=== PATIENT | female | born 1985 | race Caucasian/White ===

== ENCOUNTER 2016-06-20 18:00 | Inpatient (IN) | payer OTHER ==
--- NOTE | ~2016-06-20 | DS ---
Unit #: [id number] #: [id number] Patient: DUY HART [id number] [place] [address] [id number] MR#: [id number] NAME: DUY HART ROOM: [facility] Age: 31 Sex: F Admission Date: 06/20/2016 : 1985 Discharge Date: 06/25/2016 Attending Physician: Cy Laws M.D. Primary Care Physician: Primary Care Physician No DISCHARGE SUMMARY REASON FOR ADMISSION Ms. Simeon reported increasing depression, anxiety, hopelessness and some evidence of bulimia due to stress in her work place. She also made superficial cuts on her arm and was unable to contract for safety. She was admitted for stabilization. LABORATORY Please see hospital chart. HOSPITAL COURSE Patient was admitted and placed on suicide precautions, Prozac 20 mg daily for depression and Navane 5 mg at bedtime for mood stability and psychotic features were initiated. She participated in psychotherapy groups and activities with the aid of a Mongolian russian language professor and was on room lockout due to bulimia, which did not appear to be an issue. She ate well and showed no evidence of purging. She spent a significant amount of time on the phone with her family, and appeared to work out some family relationship issues. On the date of discharge she was able to contract for safety. DISCHARGE DIAGNOSIS AXIS I: Major depression with psychotic features. Bulimia Nervosa. AXIS II: No diagnosis. AXIS III: None. INSTRUCTION TO PATIENT Followup with the [facility] in [place], [place] DISCHARGE MEDICATIONS 1. Prozac 20 mg daily for depression. 2. Navane 5 mg at bedtime for psychotic features. CONDITION ON DISCHARGE Improved. PROGNOSIS Good. DIET AND ACTIVITY Per primary care doctor Unit #: [id number] #: [id number] Patient: DUY HART Dictated by... Joao Silva/ty TD: 08/24/2016 04:02 JOB #: [id number] DISCHARGE SUMMARY Page 1 of 1 X Cy Laws MD X DISCHARGE SUMMARY
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
--- NOTE | ~2016-06-20 | HP ---
Unit #: [id number] #: [id number] Patient: ROMLEIA HART [id number] [place] [address] [id number] MR#: [id number] NAME: ROMELIA HART ROOM: P132 Age: 31 Sex: F Admission Date: 06/20/2016 : 1985 Attending Physician: Cy Laws M.D. Admitting Physician: Cy Laws M.D. Primary Care Physician: Primary Care Physician No HISTORY AND PHYSICAL HISTORY OF PRESENT ILLNESS Romelia is a 31-year-old female admitted to [address] [place] [address] on 06/20/2016 for depression and bulimia. PAST MEDICAL HISTORY Bulimia for the past seven years. PAST SURGICAL HISTORY None. SOCIAL HISTORY No tobacco, alcohol or illegal drug use. She is currently single and living alone. FAMILY HISTORY Noncontributory. REVIEW OF SYSTEMS CONSTITUTIONAL: No fever or chills. HEENT: Denies any sore throat, ear pain or runny nose. CARDIOVASCULAR: Denies chest pain, irregular heart rhythm or palpitations. CHEST: Denies shortness of breath or cough. No hemoptysis. GASTROINTESTINAL: Denies nausea, vomiting, diarrhea or chronic constipation. ENDOCRINE: Denies history of increased thirst or urination. No recent significant weight loss or gain. GENITOURINARY: Denies dysuria, frequency, or hematuria. SKIN: Denies any rashes. HEMATOLOGIC: Denies history of increased bleeding or bruising. MUSCULOSKELETAL: Denies any hot, swollen joints. No generalized muscle pain. NEUROLOGIC: Denies problems with vision or speech. No frequent, severe headaches. No numbness, tingling or weakness in any extremities. Denies loss of bladder or bowel control. CURRENT MEDICATIONS None. ALLERGIES No known drug allergies. Unit #: [id number] #: [id number] Patient: ROMELIA HART PHYSICAL EXAMINATION GENERAL: Alert, oriented, in no acute distress. VITAL SIGNS: Blood pressure 139/89, heart rate 61, respirations 18. HEIGHT: 4 foot 9 inches. WEIGHT: 146 pounds. SKIN: Warm and dry without rash or lesion. HEENT: Normocephalic. TMs not viewed. Oral and nasal passages clear. Conjunctivae clear. PERRLA. EOMs intact. NECK: Supple without lymphadenopathy or thyromegaly. HEART: Regular rate and rhythm without murmur. LUNGS: Clear. ABDOMEN: Soft, nontender, without masses or hepatosplenomegaly. : Not done. EXTREMITIES: No evidence of cyanosis, clubbing or edema. Moves all without focal deficit. NEUROLOGICAL: Grossly within normal limits. Cranial Nerves: II: Visual rose are intact. III, IV AND : Extraocular movements are intact. Pupils are equal, round and reactive to light. V: Facial sensation is grossly normal. VII: Facial movements and expression are normal. VIII: Auditory acuity grossly intact. IX, X: Uvula is midline. Phonation is normal. XI: Patient shrugs shoulders and turns head normally. XII: Tongue protrudes in the midline. Sensory and Motor Function: Sensory and motor sensation is grossly normal. Motor: moves all extremities well. Coordination: Gait is normal. Deep Tendon Reflexes: Intact. IMPRESSION Psychiatric admission, bulimia. RECOMMENDATIONS Psychiatric, per psychiatrist. MEDICAL: I see no contraindications to participating in facility's activities. MEDICAL PROGNOSIS Good. MEDICAL CONDITION Stable. Dictated by... Rosa Burgess/ty TD: 06/21/2016 20:45 JOB #: [id number] Unit #: [id number] #: [id number] Patient: ROMELIA HART HISTORY AND PHYSICAL Page 1 of 1 X PHOEBE PEARSON APRN X HISTORY AND PHYSICAL
--- NOTE | ~2016-06-20 | A ---
[facility] Nutrition Therapy DATE: 06/22/16 Patient: DUY SEN Physician: SAURAV Address: [address] [place] [address] Room/Bed: [address], Zip: [place] [address] Admit Date: 06/20/16 Date of : [birth year] Height: Weight: NUTRITIONAL ASSESSMENT: REASON: 2 points malnutrition risk score re: weight loss, eating disorder Admitting Dx: 31 y/o female admitted with SI and bulimia PMH: Bulimia nervosa x 7 years Anthropometrics: Ht: 57", Wt: 146 lbs, BMI: 31.6 (Stage I obese) Labs: Reviewed; WNL Meds: Mag-Al, Milk of Mg Assessment: Chart reviewed, events noted. See reason for assessment, admitting dx and PMH as stated above. Patient is single, lives with boyfriend, she is with some language barriers but able to communicate needs, declined paraprofessional interpreter. She has long hx of bulimia nervosa and reported a 25 lb weight loss in "weeks" during the needs assessment, however her BMI puts her in the Stage I obese category. She is on a regular diet, fair appetite, has been eating some and sleeping. No purging this shift per nursing, keeping bathroom door locked 2 hours after each meal for precautions. See recs below. Dx: Intentional weight loss r/t bulimia nervosa, purging AEB 25 lb weight loss in weeks. Intervention: Regular diet Monitoring, Evaluation and Goals: 1. PO intake 50-100% of meals with no s/s of binging/purging. 2. Provide/consume adequate nutrition. 3. Prevent/correct micro/macro nutrient deficiencies. Monitor: Per consult Recommendations: 1. Continue regular diet, encorage well-balanced meals to include protein, dairy, grains, fruits and vegetables. Discourage binging/purging. 2. Suggest outpatient counseling regarding eating disorder. 3. Please consult RD with any further nutritional needs. [facility] Therapy DATE: 06/22/16 Patient: DUY SEN Physician: SAURAV Address: [address] [place] [address] Room/Bed: [address], Zip: [place] [address] Admit Date: 06/20/16 Date of : [birth year] Height: Weight: Mild nutrition risk Respectfully, Jerilyn Mao RD, LD [facility] cc: client file
[2016-06-21 09:53] LABS: BASOPHIL% 0.5 % (0-2.5); EOSINOPHIL% 0.2 % (0.0-7.0); HEMATOCRIT 41.3 % (35.0-45.0); HEMOGLOBIN 13.3 gm/dL (12.0-16.0); LYMPHOCYTE# 3.7 X10e3 (1.0-3.5); LYMPHOCYTE% 47.1 % (17.0-45.0); MEAN CELL VOLUME 84.4 FL (83-96); MEAN CORPUSCULAR HEMOGLOBIN 27.2 PG (28-34); MEAN CORPUSCULAR HGB CONC 32.2 g/dL (30-36); MEAN PLATELET VOLUME 7.7 FL (6.5-11.5); MONOCYTE# 0.5 X10e3 (0-1.0); MONOCYTE% 5.9 % (3.0-12.0); NEUTROPHIL# 3.6 X10e3 (1.5-7.1); NEUTROPHIL% 46.3 % (40-75); PLATELET COUNT 318 X10e3 (140-420); RED CELL DISTRIBUTION WIDTH 13.1 % (11.0-15.5); WHITE BLOOD COUNT 7.8 X10e3 (4.0-10.5)
[2016-06-21 10:27] LABS: ALBUMIN SERUM 3.9 g/dL (3.5-5.0); BILIRUBIN,TOTAL 0.3 mg/dL (0.2-2.0); CALCIUM SERUM 9.2 mg/dL (8.4-10.2); CREATININE SERUM 0.8 mg/dL (0.6-1.4); GLOM FILT RATE Estimated 98.3 mL/min (>60); POTASSIUM 4.1 mmol/L (3.5-5.1); PROTEIN TOTAL SERUM 6.9 g/dL (6.0-8.3)
[2016-06-21 10:34] LABS: DIFF IND NO
== END 2016-06-25 13:30 | disposition home or self-care (01) | DRG 885 ==
LOC: P1S 21:57
PROVIDERS: Psychiatry & Neurology Psychiatry
DX: F33.3 Major depressive disorder, recurrent, severe with psychotic symptoms (principal); F50.2 Bulimia nervosa; T14.8 Other injury of unspecified body region; X83.8XXA Intentional self-harm by other specified means, initial encounter
CPT/HCPCS: 80053; 84703; 85025